=== PATIENT | female | born 1965 | race Caucasian/White ===

== ENCOUNTER → 2023-09-11 18:01 | Outpatient (REF) | payer OTHER, SELFPAY | LOC: WDC 18:01 | PROVIDERS: ATTENDING PHYSICIAN Obstetrics & Gynecology; FAMILY PHYSICIAN Nurse Practitioner | DX: Z12.31 Encounter for screening mammogram for malignant neoplasm of breast (principal) | CPT/HCPCS: 77063; 77067 ==

== ENCOUNTER → 2025-01-11 18:12 | Outpatient (REF) | payer OTHER, SELFPAY | LOC: WDC 18:12 | PROVIDERS: ATTENDING PHYSICIAN Obstetrics & Gynecology; FAMILY PHYSICIAN Nurse Practitioner | DX: Z12.31 Encounter for screening mammogram for malignant neoplasm of breast (principal) | CPT/HCPCS: 77063; 77067 ==